=== PATIENT | female | born 1995 | race Caucasian/White ===

== ENCOUNTER 2018-03-31 11:53 | Emergency (ER) | payer OTHER ==
[2018-03-31] MEDS: ACETAMINOPHEN 500 MG TAB PO (12:36)
[2018-03-31 12:45] LABS: ADD MAN DIFF? NO
[2018-03-31 12:48] LABS: BASOPHILS % 0.4 % (0.0-2.0); EOSINOPHILS # 0.3 10^3/ul (0.0-0.5); HEMATOCRIT 37.5 % (37.0-47.0); HEMOGLOBIN 12.3 g/dl (12.0-16.0); LYMPHOCYTES # 1.7 10^3/ul (0.8-2.9); LYMPHOCYTES % 19.2 % (15.0-51.0); MEAN CORPUSCULAR HEMOGLOBIN 30.5 pg (29.0-33.0); MEAN CORPUSCULAR HGB CONC 32.8 g/dl (32.0-37.0); MEAN CORPUSCULAR VOLUME 93.1 fl (82.0-101.0); MEAN PLATELET VOLUME 9.7 fl (7.4-10.4); MONOCYTE # 0.6 10^3/ul (0.3-0.9); MONOCYTES % 6.5 % (0.0-11.0); NEUTROPHIL # 6.3 10^3/ul (1.6-7.5); NEUTROPHILS % 70.7 % (39.0-77.0); PLATELET COUNT 317 10^3/UL (140-415); RED BLOOD COUNT 4.03 10^6/ul (4.20-5.40); RED CELL DISTRIBUTION WIDTH 12.9 % (11.5-14.5)
[2018-03-31 12:55] LABS: ADD UMIC NO; UR ASCORBIC ACID NEGATIVE (NEGATIVE); UR BILIRUBIN (Dip) NEGATIVE (NEGATIVE); UR BLOOD (Dip) NEGATIVE (NEGATIVE); UR CLARITY CLEAR (CLEAR); UR COLOR STRAW (YELLOW); UR GLUCOSE (Dip) NEGATIVE (NEGATIVE); UR KETONES (Dip) NEGATIVE (NEGATIVE); UR LEUKOCYTE ESTERASE (Dip) NEGATIVE Leu/ul (NEGATIVE); UR NITRITE (Dip) NEGATIVE (NEGATIVE); UR SPECIFIC GRAVITY (Dip) 1.004 (1.003-1.030); UR TOTAL PROTEIN (Dip) NEGATIVE (NEGATIVE); UR UROBILINOGEN (Dip) NEGATIVE (NEGATIVE)
[2018-03-31 13:15] LABS: ANION GAP 10 (5-13); CARBON DIOXIDE 26 mmol/L (21-31); CHLORIDE 103 mmol/L (97-110); GLUCOSE 94 mg/dl (70-220); POTASSIUM 4.3 mmol/L (3.5-5.1); SODIUM 139 mmol/L (135-144)
[2018-03-31 13:16] LABS: ALANINE AMINOTRANSFERASE 16 IU/L (13-69); ALBUMIN 4.4 g/dl (3.3-4.9); ALBUMIN/GLOBULIN RATIO 1.04; ALKALINE PHOSPHATASE 90 IU/L (42-121); ASPARTATE AMINO TRANSFERASE 18 IU/L (15-46); BILIRUBIN,INDIRECT 0.4 mg/dl (0-1.1); BILIRUBIN,TOTAL 0.4 mg/dl (0.2-1.3); BLOOD UREA NITROGEN 10 mg/dl (7-20); CALCIUM 10.3 mg/dl (8.4-10.2); Estimated GFR > 60 mL/min (>60); LIPASE 62 U/L (23-300); TOTAL PROTEIN 8.6 g/dl (6.1-8.1)
== END 2018-03-31 14:06 | disposition home or self-care (01) ==
LOC: FTE 11:53
DX: O26.891 Other specified pregnancy related conditions, first trimester (principal); R10.2 Pelvic and perineal pain; Z3A.08 8 weeks gestation of pregnancy
CPT/HCPCS: 36415; 76801; 76817; 80053; 81003; 83690; 84702; 85025; 86900; 86901; 99284-25

== ENCOUNTER 2018-05-24 17:40 | Emergency (ER) | payer SELFPAY, OTHER | END 2018-05-24 21:55 | disposition left against medical advice (07) | LOC: FTE 17:40 | DX: Z53.21 Procedure and treatment not carried out due to patient leaving prior to being seen by health care provider (principal) ==

== ENCOUNTER 2018-08-31 15:30 | Inpatient (IN) | payer OTHER ==
[2018-08-31 16:18] LABS: ADD MAN DIFF? NO
[2018-08-31 16:22] LABS: BASOPHILS % 0.3 % (0.0-2.0); EOSINOPHILS # 0.4 10^3/ul (0.0-0.5); EOSINOPHILS % 3.8 % (0.0-7.0); HEMATOCRIT 32.1 % (37.0-47.0); HEMOGLOBIN 10.7 g/dl (12.0-16.0); LYMPHOCYTES # 1.7 10^3/ul (0.8-2.9); LYMPHOCYTES % 16.8 % (15.0-51.0); MEAN CORPUSCULAR HEMOGLOBIN 32.2 pg (29.0-33.0); MEAN CORPUSCULAR HGB CONC 33.3 g/dl (32.0-37.0); MEAN CORPUSCULAR VOLUME 96.7 fl (82.0-101.0); MEAN PLATELET VOLUME 10.8 fl (7.4-10.4); MONOCYTE # 0.6 10^3/ul (0.3-0.9); MONOCYTES % 5.8 % (0.0-11.0); NEUTROPHIL # 7.5 10^3/ul (1.6-7.5); NEUTROPHILS % 72.9 % (39.0-77.0); PLATELET COUNT 261 10^3/UL (140-415); RED BLOOD COUNT 3.32 10^6/ul (4.20-5.40); RED CELL DISTRIBUTION WIDTH 12.8 % (11.5-14.5)
[2018-08-31 16:22] LABS: WHITE BLOOD COUNT 10.3 10^3/ul (4.8-10.8)
[2018-08-31 16:34] LABS: ADD UMIC YES; UR ASCORBIC ACID NEGATIVE (NEGATIVE); UR BILIRUBIN (Dip) NEGATIVE (NEGATIVE); UR BLOOD (Dip) NEGATIVE (NEGATIVE); UR CLARITY SLIGHTLY CLOUDY (CLEAR); UR COLOR YELLOW (YELLOW); UR GLUCOSE (Dip) NEGATIVE (NEGATIVE); UR KETONES (Dip) NEGATIVE (NEGATIVE); UR LEUKOCYTE ESTERASE (Dip) NEGATIVE Leu/ul (NEGATIVE); UR MUCUS FEW /HPF (NONE SEEN); UR NITRITE (Dip) NEGATIVE (NEGATIVE); UR RBC 0 /HPF (0-5); UR SPECIFIC GRAVITY (Dip) 1.028 (1.003-1.030); UR SQUAMOUS EPITHELIAL CELL FEW /HPF (FEW); UR TOTAL PROTEIN (Dip) 3+ mg/dl (NEGATIVE); UR UROBILINOGEN (Dip) NEGATIVE (NEGATIVE); UR WBC 2 /HPF (0-5)
[2018-08-31 16:42] LABS: ALANINE AMINOTRANSFERASE 8 IU/L (13-69); ALBUMIN 3.1 g/dl (3.3-4.9); ALBUMIN/GLOBULIN RATIO 0.91; ALKALINE PHOSPHATASE 118 IU/L (42-121); ANION GAP 6 (5-13); ASPARTATE AMINO TRANSFERASE 15 IU/L (15-46); BILIRUBIN,INDIRECT 0.5 mg/dl (0-1.1); BILIRUBIN,TOTAL 0.5 mg/dl (0.2-1.3); BLOOD UREA NITROGEN 15 mg/dl (7-20); CALCIUM 9.3 mg/dl (8.4-10.2); CARBON DIOXIDE 24 mmol/L (21-31); CHLORIDE 106 mmol/L (97-110); CREATININE 0.71 mg/dl (0.44-1.00); Estimated GFR > 60 mL/min (>60); GLUCOSE 80 mg/dl (70-220); POTASSIUM 4.8 mmol/L (3.5-5.1); SODIUM 136 mmol/L (135-144); TOTAL PROTEIN 6.5 g/dl (6.1-8.1); URIC ACID 6.7 mg/dl (3.1-7.9)
[2018-08-31 16:43] LABS: INR 0.86; PARTIAL THROMBOPLASTIN TIME 25.4 Sec (23.0-35.0); PROTIME 11.8 Sec (11.9-14.9); PT RATIO 0.9
[2018-08-31] MEDS ORDERED: BETAMET NA PHOS/AC(6 MG/ML) 2 ML INJ SYG IM (18:30)
[2018-08-31] MEDS: LACTATED RINGER'S 1,000 ML IV (18:48)
[2018-08-31] MEDS: LABETALOL 200 MG TAB PO (20:02)
[2018-08-31] MEDS: BETAMET NA PHOS/AC(6 MG/ML) 2 ML INJ SYG IM (20:03)
[2018-09-01] MEDS: LACTATED RINGER'S 1,000 ML IV ×3 (02:35→19:00)
[2018-09-01] MEDS: ACETAMINOPHEN 325 MG TAB PO (03:32)
[2018-09-01] MEDS: PRENATAL VITAMIN PO (09:12)
[2018-09-01] MEDS: FERROUS SULFATE (EC) 325 MG TAB PO (09:12)
[2018-09-01] MEDS: LABETALOL 200 MG TAB PO ×2 (09:12→21:03)
[2018-09-01] MEDS: FAMOTIDINE 20 MG INJ IV (13:56)
[2018-09-01] MEDS: AL HYDROX/MG HYDROX/SIMETH 30 ML CUP PO (13:56)
[2018-09-01 20:40] LABS: COLLECTION PERIOD 24 hrs
[2018-09-01] MEDS: BETAMET NA PHOS/AC(6 MG/ML) 2 ML INJ SYG IM (21:03)
[2018-09-01 22:27] LABS: VOLUME 2600 mls
[2018-09-01 22:39] LABS: COLLECTION PERIOD 24 hrs; SCRET 0.71 mg/dl (0.44-1.00)
[2018-09-01 22:40] LABS: CREATININE CLEARANCE 118.6 mls/min (84.0-162.0); CREATININE,URINE RANDOM 46.62 mg/dl (20-320); VOLUME 2600 ml/24hrs
[2018-09-02] MEDS: LACTATED RINGER'S 1,000 ML IV ×3 (02:25→17:10)
[2018-09-02] MEDS: AL HYDROX/MG HYDROX/SIMETH 30 ML CUP PO ×4 (05:26→18:38)
[2018-09-02 07:51] LABS: ADD MAN DIFF? NO
[2018-09-02 07:53] LABS: BASOPHILS % 0.1 % (0.0-2.0); EOSINOPHILS % 0.2 % (0.0-7.0); HEMATOCRIT 30.9 % (37.0-47.0); HEMOGLOBIN 10.1 g/dl (12.0-16.0); LYMPHOCYTES # 1.1 10^3/ul (0.8-2.9); LYMPHOCYTES % 10.8 % (15.0-51.0); MEAN CORPUSCULAR HEMOGLOBIN 32.1 pg (29.0-33.0); MEAN CORPUSCULAR HGB CONC 32.7 g/dl (32.0-37.0); MEAN CORPUSCULAR VOLUME 98.1 fl (82.0-101.0); MONOCYTE # 0.2 10^3/ul (0.3-0.9); MONOCYTES % 2.3 % (0.0-11.0); NEUTROPHIL # 8.4 10^3/ul (1.6-7.5); NEUTROPHILS % 83.4 % (39.0-77.0); PLATELET COUNT 232 10^3/UL (140-415); RED BLOOD COUNT 3.15 10^6/ul (4.20-5.40); RED CELL DISTRIBUTION WIDTH 13.6 % (11.5-14.5)
[2018-09-02 07:53] LABS: WHITE BLOOD COUNT 10.1 10^3/ul (4.8-10.8)
[2018-09-02 08:09] LABS: URIC ACID 6.4 mg/dl (3.1-7.9)
[2018-09-02 08:10] LABS: ALANINE AMINOTRANSFERASE 11 IU/L (13-69); ALBUMIN 2.8 g/dl (3.3-4.9); ALKALINE PHOSPHATASE 107 IU/L (42-121); ANION GAP 9 (5-13); ASPARTATE AMINO TRANSFERASE 18 IU/L (15-46); BILIRUBIN,INDIRECT 0.4 mg/dl (0-1.1); BILIRUBIN,TOTAL 0.4 mg/dl (0.2-1.3); BLOOD UREA NITROGEN 14 mg/dl (7-20); CALCIUM 8.6 mg/dl (8.4-10.2); CARBON DIOXIDE 20 mmol/L (21-31); CHLORIDE 107 mmol/L (97-110); CREATININE 0.64 mg/dl (0.44-1.00); Estimated GFR > 60 mL/min (>60); GLUCOSE 152 mg/dl (70-220); POTASSIUM 4.5 mmol/L (3.5-5.1); SODIUM 136 mmol/L (135-144); TOTAL PROTEIN 5.9 g/dl (6.1-8.1)
[2018-09-02 08:12] LABS: INR 0.82; PARTIAL THROMBOPLASTIN TIME 22.6 Sec (23.0-35.0); PROTIME 11.4 Sec (11.9-14.9); PT RATIO 0.9
[2018-09-02] MEDS: FERROUS SULFATE (EC) 325 MG TAB PO (08:27)
[2018-09-02] MEDS: LABETALOL 200 MG TAB PO ×2 (08:28→21:02)
[2018-09-02] MEDS: PRENATAL VITAMIN PO (08:28)
[2018-09-02] MEDS: ACETAMINOPHEN 325 MG TAB PO (13:21)
[2018-09-02] MEDS ORDERED: PRENATAL VITAMIN PO (16:30)
[2018-09-02] MEDS ORDERED: FERROUS SULFATE (EC) 325 MG TAB PO (16:30)
[2018-09-02] MEDS: FAMOTIDINE 20 MG TAB PO (21:02)
[2018-09-03] MEDS: AL HYDROX/MG HYDROX/SIMETH 30 ML CUP PO (00:13)
[2018-09-03] MEDS: ACETAMINOPHEN 325 MG TAB PO (05:40)
[2018-09-03] MEDS: LABETALOL HCL 20MG INJ IV ×3 (06:54→16:45)
[2018-09-03] MEDS ORDERED: MAGNESIUM SULFATE 4 GM/100 ML 100 ML ×2 (07:23→07:39)
[2018-09-03] MEDS ORDERED: AL HYDROX/MG HYDROX/SIMETH 30 ML CUP PO (07:35)
[2018-09-03] MEDS ORDERED: METHYLERGONOVINE 0.2 MG INJ IM ×2 (08:00→20:00)
[2018-09-03] MEDS ORDERED: MISOPROSTOL 200 MCG TAB PR ×2 (08:00→20:00)
[2018-09-03] MEDS ORDERED: OXYTOCIN 30 UNITS/LR 500 ML IV ×2 (08:00→20:00)
[2018-09-03] MEDS ORDERED: CARBOPROST 250 MCG INJ IM ×2 (08:00→20:00)
[2018-09-03] MEDS: MAGNESIUM SULFATE 20 GM/500 ML 500 ML IV ×2 (08:18→20:07)
[2018-09-03] MEDS: MAGNESIUM SULFATE 4 GM/100 ML 100 ML IVPB (08:24)
[2018-09-03] MEDS ORDERED: ASPIRIN (EC) 81 MG TAB PO (09:00)
[2018-09-03 09:38] LABS: ADD MAN DIFF? NO
[2018-09-03 09:43] LABS: WHITE BLOOD COUNT 11.4 10^3/ul (4.8-10.8)
[2018-09-03 09:43] LABS: BASOPHILS % 0.4 % (0.0-2.0); EOSINOPHILS # 0.1 10^3/ul (0.0-0.5); EOSINOPHILS % 0.5 % (0.0-7.0); HEMATOCRIT 33.8 % (37.0-47.0); HEMOGLOBIN 11.1 g/dl (12.0-16.0); LYMPHOCYTES # 1.7 10^3/ul (0.8-2.9); LYMPHOCYTES % 14.5 % (15.0-51.0); MEAN CORPUSCULAR HEMOGLOBIN 32.5 pg (29.0-33.0); MEAN CORPUSCULAR HGB CONC 32.8 g/dl (32.0-37.0); MEAN CORPUSCULAR VOLUME 98.8 fl (82.0-101.0); MEAN PLATELET VOLUME 10.6 fl (7.4-10.4); MONOCYTE # 0.8 10^3/ul (0.3-0.9); MONOCYTES % 6.6 % (0.0-11.0); NEUTROPHIL # 8.4 10^3/ul (1.6-7.5); NEUTROPHILS % 73.9 % (39.0-77.0); NUCLEATED RED BLOOD CELLS # 0.1 10^3/ul (0.0-0.0); NUCLEATED RED BLOOD CELLS% 0.7 /100WBC (0.0-0.0); PLATELET COUNT 246 10^3/UL (140-415); RED BLOOD COUNT 3.42 10^6/ul (4.20-5.40); RED CELL DISTRIBUTION WIDTH 13.8 % (11.5-14.5)
[2018-09-03 10:04] LABS: INR 0.78; PT RATIO 0.9
[2018-09-03 10:11] LABS: ALANINE AMINOTRANSFERASE 34 IU/L (13-69); ALBUMIN 3.1 g/dl (3.3-4.9); ALBUMIN/GLOBULIN RATIO 0.91; ALKALINE PHOSPHATASE 126 IU/L (42-121); ANION GAP 6 (5-13); ASPARTATE AMINO TRANSFERASE 47 IU/L (15-46); BILIRUBIN,INDIRECT 0.7 mg/dl (0-1.1); BILIRUBIN,TOTAL 0.7 mg/dl (0.2-1.3); BLOOD UREA NITROGEN 16 mg/dl (7-20); CALCIUM 8.7 mg/dl (8.4-10.2); CARBON DIOXIDE 24 mmol/L (21-31); CHLORIDE 105 mmol/L (97-110); CREATININE 0.74 mg/dl (0.44-1.00); Estimated GFR > 60 mL/min (>60); GLUCOSE 91 mg/dl (70-220); POTASSIUM 4.6 mmol/L (3.5-5.1); SODIUM 135 mmol/L (135-144); TOTAL PROTEIN 6.5 g/dl (6.1-8.1); URIC ACID 6.8 mg/dl (3.1-7.9)
[2018-09-03 12:08] LABS: ADD UMIC YES; UR ASCORBIC ACID NEGATIVE (NEGATIVE); UR BACTERIA FEW /HPF (NONE SEEN); UR BILIRUBIN (Dip) NEGATIVE (NEGATIVE); UR BLOOD (Dip) NEGATIVE (NEGATIVE); UR CLARITY CLEAR (CLEAR); UR COLOR STRAW (YELLOW); UR GLUCOSE (Dip) NEGATIVE (NEGATIVE); UR KETONES (Dip) NEGATIVE (NEGATIVE); UR LEUKOCYTE ESTERASE (Dip) NEGATIVE Leu/ul (NEGATIVE); UR NITRITE (Dip) NEGATIVE (NEGATIVE); UR RBC 1 /HPF (0-5); UR SPECIFIC GRAVITY (Dip) 1.013 (1.003-1.030); UR TOTAL PROTEIN (Dip) 3+ mg/dl (NEGATIVE); UR UROBILINOGEN (Dip) NEGATIVE (NEGATIVE); UR WBC 1 /HPF (0-5)
[2018-09-03] MEDS: AZITHROMYCIN 500MG/NS (PMX) 250 ML IV (13:18)
[2018-09-03] MEDS: CITRIC ACID/NA CITRATE 30 ML CUP PO (13:19)
[2018-09-03] MEDS ORDERED: morphine SULFATE/PF (10 MG/10 ML) INJ (13:49)
[2018-09-03] MEDS ORDERED: CEFAZOLIN 1 GM INJ ×2 (14:09→14:13)
[2018-09-03] MEDS: CEFAZOLIN 2 GM/50 ML (PMX) 50 ML IVPB ×2 (14:16→21:41)
[2018-09-03] MEDS ORDERED: DIPHENHYDRAMINE 50 MG INJ ×2 (14:27→14:28)
[2018-09-03] MEDS ORDERED: MIDAZOLAM 1 MG/ML 2 ML INJ ×3 (14:34)
[2018-09-03] MEDS ORDERED: ONDANSETRON 4 MG INJ (14:36)
[2018-09-03] MEDS ORDERED: FENTAnyl 50 MCG/ML VIAL (14:36)
[2018-09-03 14:58] LABS: RAPID PLASMA REAGIN NONREACTIVE (NR)
[2018-09-03] MEDS ORDERED: KETOROLAC 30 MG INJ (15:05)
[2018-09-03] MEDS ORDERED: LORAZEPAM 2 MG INJ IV (15:30)
[2018-09-03] MEDS ORDERED: NALBUPHINE HCL (10 MG/1 ML) INJ IV (15:30)
[2018-09-03] MEDS ORDERED: NALOXONE (0.4 MG/ML) INJ IV (15:30)
[2018-09-03] MEDS ORDERED: ONDANSETRON 4 MG INJ IV ×2 (15:30)
[2018-09-03] MEDS ORDERED: HYDROmorphONE 0.5 MG/0.5 ML SYG IV ×2 (15:30)
[2018-09-03] MEDS ORDERED: METOCLOPRAMIDE 10 MG INJ IV (15:30)
[2018-09-03] MEDS ORDERED: MIDAZOLAM 1 MG/ML 2 ML INJ IV (15:30)
[2018-09-03] MEDS ORDERED: MEPERIDINE 25 MG INJ IV (15:30)
[2018-09-03] MEDS ORDERED: DIPHENHYDRAMINE 50 MG INJ IV ×2 (15:30)
[2018-09-03] MEDS ORDERED: hydrALAzine 20 MG INJ IV (15:30)
[2018-09-03] MEDS ORDERED: ZOLPIDEM 5 MG TAB PO (15:30)
[2018-09-03] MEDS ORDERED: KETOROLAC 30 MG INJ IV (15:30)
[2018-09-03] MEDS: OXYTOCIN 30 UNITS/LR 500 ML IV (15:34)
[2018-09-03] MEDS ORDERED: HYDROCODONE/APAP (5/325) TAB PO (20:00)
[2018-09-03] MEDS ORDERED: NA PHOSPHATE/BIPHOS 133 ML ENEMA PR (20:00)
[2018-09-03] MEDS ORDERED: LANOLIN HPA 1 PKT TOP (20:00)
[2018-09-03] MEDS: LACTATED RINGER'S 1,000 ML IV (20:08)
[2018-09-03] MEDS: SENNA/DOCUSATE NA (8.6MG/50MG) TAB PO (20:33)
[2018-09-03] MEDS: LABETALOL 200 MG TAB PO (20:33)
[2018-09-03 22:01] LABS: MAGNESIUM 7.1 mg/dl (1.7-2.5)
[2018-09-04] MEDS: CLINDAMYCIN 300 MG CAP PO ×4 (00:02→18:34)
[2018-09-04 01:29] LABS: MAGNESIUM 6.9 mg/dl (1.7-2.5)
[2018-09-04] MEDS: CEFAZOLIN 2 GM/50 ML (PMX) 50 ML IVPB ×2 (04:49→11:47)
[2018-09-04 06:39] LABS: ADD MAN DIFF? NO
[2018-09-04 06:42] LABS: WHITE BLOOD COUNT 9.3 10^3/ul (4.8-10.8)
[2018-09-04 06:42] LABS: BASOPHILS % 0.2 % (0.0-2.0); EOSINOPHILS # 0.1 10^3/ul (0.0-0.5); HEMATOCRIT 31.8 % (37.0-47.0); HEMOGLOBIN 10.4 g/dl (12.0-16.0); LYMPHOCYTES # 1.2 10^3/ul (0.8-2.9); LYMPHOCYTES % 13.1 % (15.0-51.0); MEAN CORPUSCULAR HGB CONC 32.7 g/dl (32.0-37.0); MEAN CORPUSCULAR VOLUME 97.8 fl (82.0-101.0); MEAN PLATELET VOLUME 10.8 fl (7.4-10.4); MONOCYTE # 0.6 10^3/ul (0.3-0.9); MONOCYTES % 6.5 % (0.0-11.0); NEUTROPHIL # 7.2 10^3/ul (1.6-7.5); NEUTROPHILS % 77.9 % (39.0-77.0); NUCLEATED RED BLOOD CELLS% 0.3 /100WBC (0.0-0.0); PLATELET COUNT 148 10^3/UL (140-415); RED BLOOD COUNT 3.25 10^6/ul (4.20-5.40); RED CELL DISTRIBUTION WIDTH 13.8 % (11.5-14.5)
[2018-09-04 07:50] LABS: ALANINE AMINOTRANSFERASE 32 IU/L (13-69); ALBUMIN 2.5 g/dl (3.3-4.9); ALKALINE PHOSPHATASE 110 IU/L (42-121); ANION GAP 3 (5-13); ASPARTATE AMINO TRANSFERASE 42 IU/L (15-46); BILIRUBIN,INDIRECT 0.6 mg/dl (0-1.1); BILIRUBIN,TOTAL 0.6 mg/dl (0.2-1.3); BLOOD UREA NITROGEN 16 mg/dl (7-20); CALCIUM 6.8 mg/dl (8.4-10.2); CARBON DIOXIDE 28 mmol/L (21-31); CHLORIDE 98 mmol/L (97-110); CREATININE 0.81 mg/dl (0.44-1.00); Estimated GFR > 60 mL/min (>60); GLUCOSE 84 mg/dl (70-220); POTASSIUM 5.1 mmol/L (3.5-5.1); SODIUM 129 mmol/L (135-144); TOTAL PROTEIN 5.6 g/dl (6.1-8.1)
[2018-09-04 08:15] LABS: MAGNESIUM 6.7 mg/dl (1.7-2.5)
[2018-09-04] MEDS: LABETALOL 200 MG TAB PO ×2 (08:40→21:16)
[2018-09-04] MEDS: SENNA/DOCUSATE NA (8.6MG/50MG) TAB PO ×2 (08:40→21:15)
[2018-09-04] MEDS: ACETAMINOPHEN 325 MG TAB PO (08:55)
[2018-09-04] MEDS: LACTATED RINGER'S 1,000 ML IV ×2 (10:15→17:34)
[2018-09-04] MEDS: MAGNESIUM SULFATE 20 GM/500 ML 500 ML IV (10:17)
[2018-09-04] MEDS: BISACODYL 10 MG SUPP PR (11:30)
[2018-09-04 12:47] LABS: MAGNESIUM 6.4 mg/dl (1.7-2.5)
[2018-09-04 15:36] LABS: ADD MAN DIFF? NO
[2018-09-04 15:39] LABS: BASOPHILS % 0.1 % (0.0-2.0); EOSINOPHILS # 0.1 10^3/ul (0.0-0.5); EOSINOPHILS % 0.9 % (0.0-7.0); HEMATOCRIT 32.6 % (37.0-47.0); HEMOGLOBIN 10.8 g/dl (12.0-16.0); LYMPHOCYTES # 1.1 10^3/ul (0.8-2.9); LYMPHOCYTES % 11.1 % (15.0-51.0); MEAN CORPUSCULAR HEMOGLOBIN 32.6 pg (29.0-33.0); MEAN CORPUSCULAR HGB CONC 33.1 g/dl (32.0-37.0); MEAN CORPUSCULAR VOLUME 98.5 fl (82.0-101.0); MEAN PLATELET VOLUME 10.9 fl (7.4-10.4); MONOCYTE # 0.5 10^3/ul (0.3-0.9); MONOCYTES % 5.1 % (0.0-11.0); NEUTROPHILS % 81.6 % (39.0-77.0); NUCLEATED RED BLOOD CELLS% 0.2 /100WBC (0.0-0.0); PLATELET COUNT 156 10^3/UL (140-415); RED BLOOD COUNT 3.31 10^6/ul (4.20-5.40); RED CELL DISTRIBUTION WIDTH 13.5 % (11.5-14.5)
[2018-09-04 15:39] LABS: WHITE BLOOD COUNT 9.8 10^3/ul (4.8-10.8)
[2018-09-04 15:57] LABS: ALANINE AMINOTRANSFERASE 30 IU/L (13-69); ALBUMIN 2.8 g/dl (3.3-4.9); ALBUMIN/GLOBULIN RATIO 0.84; ALKALINE PHOSPHATASE 121 IU/L (42-121); ANION GAP 4 (5-13); ASPARTATE AMINO TRANSFERASE 36 IU/L (15-46); BILIRUBIN,INDIRECT 0.5 mg/dl (0-1.1); BILIRUBIN,TOTAL 0.5 mg/dl (0.2-1.3); BLOOD UREA NITROGEN 16 mg/dl (7-20); CALCIUM 6.6 mg/dl (8.4-10.2); CARBON DIOXIDE 30 mmol/L (21-31); CHLORIDE 96 mmol/L (97-110); CREATININE 0.72 mg/dl (0.44-1.00); Estimated GFR > 60 mL/min (>60); GLUCOSE 85 mg/dl (70-220); POTASSIUM 4.5 mmol/L (3.5-5.1); SODIUM 130 mmol/L (135-144); TOTAL PROTEIN 6.1 g/dl (6.1-8.1)
[2018-09-04] MEDS: OXYCODONE/ACETAMINOPHEN (5/325) TAB PO (17:36)
[2018-09-04] MEDS: IBUPROFEN 800 MG TAB PO ×2 (19:00→21:59)
[2018-09-05] MEDS: CLINDAMYCIN 300 MG CAP PO ×4 (00:06→18:06)
[2018-09-05] MEDS: IBUPROFEN 800 MG TAB PO ×3 (05:51→22:07)
[2018-09-05] MEDS: SENNA/DOCUSATE NA (8.6MG/50MG) TAB PO ×2 (09:35→22:07)
[2018-09-05] MEDS: LABETALOL 200 MG TAB PO ×2 (09:35→21:17)
[2018-09-05] MEDS: ACETAMINOPHEN 325 MG TAB PO ×2 (09:47→16:24)
[2018-09-05] MEDS: BISACODYL 10 MG SUPP PR (12:34)
[2018-09-05] MEDS ORDERED: ACETAMINOPHEN 325 MG TAB PO (19:30)
[2018-09-05] MEDS: KETOROLAC 30 MG INJ IV (20:17)
[2018-09-05] MEDS: ACETAMINOPHEN 500 MG TAB PO (20:18)
[2018-09-06] MEDS: CLINDAMYCIN 300 MG CAP PO ×3 (00:01→11:36)
[2018-09-06] MEDS: IBUPROFEN 800 MG TAB PO ×2 (05:31→14:00)
[2018-09-06] MEDS: LABETALOL 200 MG TAB PO (08:18)
[2018-09-06] MEDS: SENNA/DOCUSATE NA (8.6MG/50MG) TAB PO (11:36)
[2018-09-06] MEDS: MEASLES,MUMPS,RUBELLA VACCINE INJ SC* (11:36)
[2018-09-06] MEDS: DIPHTH/TET/ACEL PERTUSS (ADULT) 0.5 ML VIAL IM* (11:37)
[2018-09-07 11:16] LABS: SMOOTH MUSCLE AB SCREEN NEGATIVE (NEGATIVE)
[2018-09-07 12:07] LABS: ANA SCREEN NEGATIVE (NEGATIVE)
[2018-09-08 16:57] LABS: CARDIOLIPIN AB - IGA <11 APL; CARDIOLIPIN AB - IGG <14 GPL; CARDIOLIPIN AB - IGM <12 MPL
== END 2018-09-06 15:05 | disposition home or self-care (01) | DRG 788 ==
LOC: OBT 15:30 → L-D 09-01 01:04 → PP1 09-04 19:40 → L-D 15:31 → OBT 18:18 → PP1 09-01 11:30 → L-D 09-03 13:32 → PP1 09-01 12:01 → L-D 09-03 15:50
PROC: 10D00Z1 Extraction of Products of Conception, Low, Open Approach (ICD-10-PCS; principal; 2018-09-03 13:45)
PROC: 3E033VJ Introduction of Other Hormone into Peripheral Vein, Percutaneous Approach (ICD-10-PCS; 2018-09-03 13:45)
DX: O60.13X0 Preterm labor second trimester with preterm delivery third trimester, not applicable or unspecified (principal); O13.4 Gestational [pregnancy-induced] hypertension without significant proteinuria, complicating childbirth; Z3A.29 29 weeks gestation of pregnancy; Z37.0 Single live birth
CPT/HCPCS: 76815; 76817; 76818; 76820; 80053; 81001; 82575; 83735; 84156; 84560; 85025; 85384; 85610; 85613; 85730; 86038; 86146; 86147; 86255; 86592; 86850; 86900; 86901; 90715; 99464